=== PATIENT | male | born 1960 | race Caucasian/White ===

== ENCOUNTER 2024-02-20 10:43 | Outpatient (AMB) | payer OTHER, SELFPAY ==
--- NOTE | 2024-02-20 10:45 | MHC.PC.OV ---
Vital Signs 02/20/24 10:47 02/20/24 11:17 Height 6 ft Weight 340 lb 0.6 oz BMI 46.1 BP 162/74 H 160/76 H Blood Pressure Location Lt brachial Position Sitting Pulse 97 Pulse Source Pulse Oximeter Temp Source Skin Pulse Oximetry (%) 96 Oxygen Delivery Method Room Air Intake Visit Reasons: new patient Intake Note: Patient is a new patient here to establish care Allergies No Known Allergies Allergy (Verified 02/20/24 11:51) Medication List - Last Reconciled 02/20/24 by Daysi Rader PA-C [argenx PO DAILY] [black currant seed oil PO DAILY] multivitamin 1 tab PO DAILY [prostate pmg PO DAILY] Tobacco use date assessed: 02/20/24 Dental Screening Dental Screen Date: 02/20/24 Did you have a dental visit in the last 12 months?: Yes Did you have a dental problem in the last 6 months where you did not have access to dental care?: No Was dental information given to patient?: Patient has dentist HPI new patient HPI Details 63-year-old male with past medical history of obstructive sleep apnea presents to the office to establish care. 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 Has had a history of skin cancer with successful removal and follows with [facility]. Was recently tested positive for COVID-19 and subsequent pneumonia. Patient finished antibiotics for pneumonia last week and is still endorsing a mild cough primarily at night. Denies any fevers or shortness of breath. States he uses a CPAP nightly for obstructive sleep apnea and has been for the past 10 years. Mentions today he has been having urinary frequency and has to get up once throughout the night where in the past he did not have to. Denies any burning, urgency, incontinence, incomplete emptying or urinary hesitancy. He also mentions he has history of kidney stones so he stays very well hydrated. [facility] Medical History (Updated 02/20/24 @ 12:18 by Daysi Rader PA-C) Skin cancer Kidney stones Surgical History (Updated 02/20/24 @ 12:05 by Daysi Rader PA-C) Status post surgical removal of malignant neoplasm of skin History of tonsillectomy Family History Mother No problems noted. Social History Housing: House Patient Tobacco Use Status: Never used Tobacco service: No Current occupational status: employed Cognitive needs: No Hearing needs: No Vision needs: No Questionnaire PHQ-9 Over the last 2 weeks, how often have you been bothered by any of the following problems? 1. Little interest or pleasure in doing things: not at all 2. Feeling down, depressed, or hopeless: not at all 3. Trouble falling or staying asleep, or sleeping too much: not at all 4. Feeling tired or having little energy: not at all 5. Poor appetite or overeating: not at all 6. Feeling bad about yourself - or that you are a failure or have let yourself or your family down: not at all 7. Trouble concentrating on things, such as reading the newspaper or watching television: not at all 8. Moving or speaking so slowly that other people could have noticed. Or the opposite - being so fidgety or restless that you have been moving around a lot more than usual: not at all 9. Thoughts that you would be better off or of hurting yourself in some way: not at all Total score: 0 Depression Screening Interpretation: Negative Depression Screening Done: Yes 63159 - PHQ-9 Billing: Yes Source: Developed by Drs. Prieto Obrien, Emerita Meneses, Robb Pro and colleagues, with an educational jesus from [employer]. Thrive Questionnaire Date Thrive assessed: 02/20/24 I am a: Patient What is your living situation today?: I have a steady place to live Within the past 12 months, did the food you bought not last and you didn't have the money to get more?: Never true Within the past 12 months, did you worry whether your food would run out before you got money to buy more?: Never true Do you have trouble paying for medicines?: No Do you have trouble getting transportation to medical appointments?: No Do you have trouble paying your heating and electricity bill?: No Do you have trouble taking care of your child, family member or friend?: No Do you have trouble with day-to-day activities such as bathing, preparing meals, shopping, managing finances, etc.?: No Are you currently unemployed and looking for a job?: No Are you interested in more education?: No Please select the resources that you would like help with: None Currently or been in a relationship where the following occur: No concerns reported THRIVE Score: 0 AUDIT C Alcohol Use Questionnaire (AUDIT-C) 1. How often do you have a drink containing alcohol?: Never 2. How many drinks containing alcohol do you have on a typical day when you are drinking?: 1 or 2 (0) 3. How often do you have six or more drinks on one occasion?: Never Total Score: 0 BENOIT-7 AMB Questionnaire BENOIT-7 Date BENOIT - 7 assessed: 02/20/24 Feeling nervous, anxious, or on edge: 0 = Not at all Not being able to stop or control worryin = Not at all Worrying too much about different things: 0 = Not at all Trouble relaxin = Not at all Being so restless that it is hard to sit still: 0 = Not at all Becoming easily annoyed or irritable: 0 = Not at all Feeling afraid as if something awful might happen: 0 = Not at all Total BENOIT-7 score (0-4 normal; 5-9 mild; 10-14 moderate; 15-21 severe): 0 Source: Developed by Drs. Prieto Obrien, Emerita Meneses, Robb Pro and colleagues, with an educational jesus from [employer]. BENOIT-7 Assessment Billing BENOIT-7 Assessment Tool: BENOIT-7 Assessment 27341 Review of Systems Const Denies body aches, Denies chills, Denies fatigue, Denies fever(s) and Denies weakness Eyes Details: Uses contact lenses Reports no additional complaints ENT Reports Normal hearing present, Denies dysphagia, Denies facial pain, Denies hoarseness and Denies odynophagia Card Denies chest pain, Denies edema and Denies dyspnea Resp Details: Mild shortness of breath with prolonged exertion Denies cough and Denies dyspnea GI Denies abdominal pain, Denies constipation, Denies dysphagia, Denies diarrhea and Denies odynophagia Denies hematuria, Denies difficulty urinating, Denies dysuria, Denies flank pain, Reports urinary frequency, Denies urinary hesitancy and Denies urinary urgency Musc Reports no additional complaints Skin/Breast Reports system reviewed and no additional complaints, except as documented Neuro Reports no additional complaints, Reports Normal hearing present and Denies weakness Psych Reports no additional complaints Endo Reports no additional complaints and Denies fatigue Physical exam (Primary Care) Vital Signs: Last Vital Signs Pulse 97 02/20/24 10:47 BP 162/74 H 02/20/24 10:47 Pulse Ox 96 02/20/24 10:47 Oxygen Delivery Method Room Air 02/20/24 10:47 BMI result Body Mass Index 46.1 Tobacco/Smoking Status: Tobacco use Status Tobacco use date assessed 02/20/24 02/20/24 10:47 Patient Tobacco Use Status Never used Tobacco 02/20/24 10:55 PHQ-9: PHQ-9 Score PHQ-9: Total score 0 02/20/24 10:47 Depression Screening Interpretation: Negative Thrive Assessment: Date of Thrive Assessment Date Thrive assessed 02/20/24 02/20/24 10:47 Currently or been in a relationship where the following occur: No concerns reported Const General: cooperative, healthy appearing, comfortable and no acute distress Nutritional Appearance: obese Orientation/consciousness: patient oriented x3 Limitations: no limitations HENMT Head: Yes normal to inspection Ears: hearing grossly normal bilaterally, external ears normal and TM's normal bilaterally General nose exam: Normal external nose present Face and sinus: Yes normal facial exam Mouth: Normal oral and palatal mucosa present and oropharynx normal Throat: Yes posterior oropharynx normal and Yes tonsils normal Eyes General: appearance normal, both eyes and all related structures Pupils: Equal, round and reactive pupils present Neck Neck: Yes normal visual inspection Resp Effort & Inspection: normal respiratory effort and no cough Auscultation: clear to auscultation bilaterally, no crackles, no rales, no rhonchi and no wheezes Cardio Rate: regular rate Rhythm: regular rhythm Heart sounds: S1 normal heart sound present and S2 normal heart sound present GI Inspection: Yes normal to inspection Skin General skin exam: no rashes or lesions noted Neuro General: patient oriented x3 Cranial nerves: Yes Equal, round and reactive pupils present and Yes Normal hearing present Extrem General: Yes normal to inspection and Yes full ROM Psych Appearance: grossly normal Mental Status: mental status grossly normal Insight: Good insight present (Psych) Judgement: Good judgement present (Psych) Assessment and Plan Assessment & Plan (1) Obstructive sleep apnea: Code(s): G47.33 - Obstructive sleep apnea (adult) (pediatric) Plan: Patient completed sleep study around 10 years ago and has been using CPAP with good relief. He routinely buys the equipment himself to maintain the machine. (2) Elevated blood pressure reading in office without diagnosis of hypertension: Code(s): R03.0 - Elevated blood-pressure reading, without diagnosis of hypertension Plan: Patient's blood pressure was elevated in the office today. Mentions his blood pressure is usually elevated when he sees other providers. Will follow up in 3 months for annual physical and blood pressure check to evaluate if medical management is necessary. Also recommended patient purchase blood pressure cuff and monitor blood pressure 2-3 per week at home and record readings for next appointment. (3) Urinary frequency: Code(s): R35.0 - Frequency of micturition Plan: Patient endorses mild urinary frequency and mentions he has to go more often than previously. No dysuria, urinary hesitancy or incontinence. Will order PSA and CMP to evaluate for prostate or metabolic involvement and follow up at next visit. Orders: Orders Comprehensive Met. Panel Today Z00.00 - Encounter for general adult medical examination without abnormal findings Prostate Specific Antigen Scr Today R35.0 - Frequency of micturition Free T4 (Free Thyroxine) Today Z00.00 - Encounter for general adult medical examination without abnormal findings Lipid Panel Today Z00.00 - Encounter for general adult medical examination without abnormal findings Complete Blood Count Auto Diff Today Z00.00 - Encounter for general adult medical examination without abnormal findings TSH reflex Free T4 Today Z00.00 - Encounter for general adult medical examination without abnormal findings Coding Level of Care Code New Pt Level 4 (17614) Diagnoses Obstructive sleep apnea G47.33 Elevated blood pressure reading in office without diagnosis of hypertension R03.0 Urinary frequency R35.0 Additional Codes BENOIT-7 Assessment Billing - BENOIT-7 Assessment Tool: BENOIT-7 Assessment 06669 ([id number])
[2024-02-20 10:47] VITALS: BP 162/74; PULSE 97; O2SAT 96; BMI 46.1
[2024-02-20 11:17] VITALS: BP 160/76
== END 2024-02-20 11:35 | disposition home or self-care (01) ==
DX: G47.33 Obstructive sleep apnea (adult) (pediatric) (principal); R03.0 Elevated blood-pressure reading, without diagnosis of hypertension; R35.0 Frequency of micturition
CPT/HCPCS: 99204

== ENCOUNTER 2024-02-23 08:27 | Outpatient (REF) | payer OTHER, SELFPAY ==
[2024-02-23 08:54] LABS: MANUAL DIFF FLAG NO
[2024-02-23 09:30] LABS: Basophils Percent Auto 0.5 % (0-2); Eosinophils Absolute Auto 0.3 X10*3/uL (0.0-0.4); Eosinophils Percent Auto 3.6 % (0-4); Hematocrit 45.8 % (42.0-52.0); Hemoglobin 14.9 g/dl (14.0-18.0); Imm Gran Abs Auto 0.03 X10*3/uL (0.00-0.03); Imm Gran Pct Auto 0.4 % (0.0-0.4); Lymphocytes Absolute Auto 1.4 X10*3/uL (1.2-4.9); Mean Corpuscular HGB Conc 32.5 g/dl (31.0-36.0); Mean Corpuscular Hemoglobin 29.2 pg (27.0-33.0); Mean Corpuscular Volume 89.6 fL (80.0-98.0); Mean Platelet Volume 8.9 fL (9.4-12.4); Monocytes Absolute Auto 0.9 X10*3/uL (0.1-1.2); Monocytes Percent Auto 11.7 % (2-11); Neutrophils Absolute Auto 5.1 x10*3/uL (2.0-8.3); Neutrophils Percent Auto 65.8 % (45-73); Platelet Count 270 X10*3/uL (160-400); Red Blood Count 5.11 X10*6/uL (4.60-5.80); Red Cell Distribution Width 13.9 % (11.0-16.0); White Blood Count 7.8 X10*3/uL (4.8-10.8)
[2024-02-23 09:37] LABS: Alanine Aminotransferase 24 U/L (0-40); Albumin Level 4.3 g/dL (3.5-5.0); Alkaline Phosphatase 68 U/L (39-117); Anion Gap 13 (12-20); Aspartate Amino Transferase 21 U/L (5-37); Bilirubin Total 0.8 mg/dL (0.0-1.0); Blood Urea Nitrogen 18 mg/dL (9-16); Calcium 9.4 mg/dL (8.4-10.2); Carbon Dioxide 28 mmol/L (22-29); Chloride 106 mmol/L (96-108); Cholesterol 136 mg/dL (<200); Estimated Glomerular Filt Rate > 60; Glucose Random 107 mg/dL (60-115); HDL Cholesterol 41 mg/dL (>40); LDL Cholesterol Calculated 81 mg/dL (<100); Potassium 4.9 mmol/L (3.3-5.1); Sodium 142 mmol/L (135-145); Total Protein 7.1 g/dL (6.5-8.0); Triglycerides 73 mg/dL (<150)
[2024-02-23 10:00] LABS: Free T4 (Free Thyroxine) 0.93 ng/dL (0.71-1.85); TSH reflex Free T4 1.74 uIU/mL (0.32-4.0)
== END 2024-02-23 08:28 | disposition home or self-care (01) ==
LOC: HO.LAB 08:27
PROVIDERS: PCP Internal Medicine
DX: Z00.00 Encounter for general adult medical examination without abnormal findings (principal); R35.0 Frequency of micturition; Z12.5 Encounter for screening for malignant neoplasm of prostate
CPT/HCPCS: 36415; 80053; 80061; 84153; 84439; 84443; 85025

== ENCOUNTER 2024-05-22 10:01 | Outpatient (AMB) | payer OTHER, SELFPAY ==
[2024-05-22 10:04] VITALS: BP 160/64; PULSE 86; O2SAT 94; BMI 45.3
--- NOTE | 2024-05-22 10:04 | A.OFFPC_ITS ---
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 Allergies No Known Allergies Allergy (Verified 05/22/24 10:13) Medication List - Last Reconciled 05/22/24 by Daysi Rader PA-C albuterol sulfate 90 mcg/actuation inhalation [argenx PO DAILY] [black currant seed oil PO DAILY] multivitamin 1 tab PO DAILY [prostate pmg PO DAILY] Tobacco use date assessed: 02/20/24 Dental Screening Dental Screen Date: 02/20/24 Did you have a dental visit in the last 12 months?: Yes Did you have a dental problem in the last 6 months where you did not have access to dental care?: No Was dental information given to patient?: Patient has dentist HPI Annual Exam and HTN HPI Details 63-year-old male with past medical histo ry of obstructive sleep apnea last seen February 2024 coming in for annual exam. Patient is feeling generally well and has no acute concerns today. He does mentioned he has had chronic bilateral leg swelling for several years with discoloration of left leg without any pain. He also mentions he has obstructive sleep apnea and has a very old CPAP machine that he uses regularly but would like an updated machine. He regularly sees his eye doctor scheduled to be seen in this week. At his last visit use advised to take his blood pressure throughout the week which he has not done. [facility] Medical History Skin cancer Kidney stones Surgical History Status post surgical removal of malignant neoplasm of skin History of tonsillectomy Family History Mother No problems noted. Social History Housing: House Patient Tobacco Use Status: Never used Tobacco service: No Current occupational status: employed Cognitive needs: No Hearing needs: No Vision needs: No Questionnaire PHQ-9 Over the last 2 weeks, how often have you been bothered by any of the following problems? 1. Little interest or pleasure in doing things: not at all 2. Feeling down, depressed, or hopeless: not at all 3. Trouble falling or staying asleep, or sleeping too much: several days 4. Feeling tired or having little energy: several days 5. Poor appetite or overeating: not at all 6. Feeling bad about yourself - or that you are a failure or have let yourself or your family down: not at all 7. Trouble concentrating on things, such as reading the newspaper or watching television: not at all 8. Moving or speaking so slowly that other people could have noticed. Or the opposite - being so fidgety or restless that you have been moving around a lot more than usual: not at all 9. Thoughts that you would be better off or of hurting yourself in some way: not at all Total score: 2 Depression Screening Interpretation: Negative Depression Screening Done: Yes 58099 - PHQ-9 Billing: Yes Source: Developed by Drs. Prieto Obrien, Emerita Meneses, Robb Pro and colleagues, with an educational jesus from [employer]. Thrive Questionnaire Date Thrive assessed: 02/20/24 I am a: Patient What is your living situation today?: I have a steady place to live Within the past 12 months, did the food you bought not last and you didn't have the money to get more?: Never true Within the past 12 months, did you worry whether your food would run out before you got money to buy more?: Never true Do you have trouble paying for medicines?: No Do you have trouble getting transportation to medical appointments?: No Do you have trouble paying your heating and electricity bill?: No Do you have trouble taking care of your child, family member or friend?: No Do you have trouble with day-to-day activities such as bathing, preparing meals, shopping, managing finances, etc.?: No Are you currently unemployed and looking for a job?: No Are you interested in more education?: Yes Please select the resources that you would like help with: None Currently or been in a relationship where the following occur: No concerns reported THRIVE Score: 0 AUDIT C Alcohol Use Questionnaire (AUDIT-C) 1. How often do you have a drink containing alcohol?: Never Total Score: 0 BENOIT-7 AMB Questionnaire BENOIT-7 Date BENOIT - 7 assessed: 05/22/24 Feeling nervous, anxious, or on edge: 0 = Not at all Not being able to stop or control worryin = Not at all Worrying too much about different things: 0 = Not at all Trouble relaxin = Not at all Being so restless that it is hard to sit still: 0 = Not at all Becoming easily annoyed or irritable: 0 = Not at all Feeling afraid as if something awful might happen: 0 = Not at all Total BENOIT-7 score (0-4 normal; 5-9 mild; 10-14 moderate; 15-21 severe): 0 Source: Developed by Drs. Prieto Obrien, Emerita Meneses, Robb Pro and colleagues, with an educational jesus from [employer]. BENOIT-7 Assessment Billing BENOIT-7 Assessment Tool: BENOIT-7 Assessment 65098 Review of Systems Const Denies body aches, Denies fatigue, Denies fever(s), Denies frequent falls, Denies headache(s) and Denies weakness Eyes Reports no additional complaints and Denies change in vision ENT Denies dysphagia, Denies dizziness, Denies facial pain, Denies headache(s), Denies nasal congestion and Denies odynophagia Card Denies chest pain, Denies syncope, Denies irregular heart rhythm, Reports leg edema, Denies lightheadedness and Denies dyspnea Resp Denies cough and Denies dyspnea GI Denies constipation, Denies dysphagia, Denies dyspepsia, Denies diarrhea, Denies nausea, Denies odynophagia and Denies vomiting Denies dysuria, Denies urinary frequency, Denies urinary hesitancy and Denies urinary urgency Musc Denies back pain and Denies myalgias Skin/Breast Reports system reviewed and no additional complaints, except as documented Neuro Denies dizziness, Denies syncope, Denies frequent falls, Denies headache(s) and Denies weakness Psych Reports no additional complaints Endo Denies fatigue Physical exam (Primary Care) Vital Signs: Last Vital Signs Pulse 86 05/22/24 10:04 BP 160/64 H 05/22/24 10:04 Pulse Ox 94 05/22/24 10:04 Oxygen Delivery Method Room Air 05/22/24 10:04 BMI result Body Mass Index 45.3 Tobacco/Smoking Status: Tobacco use Status Tobacco use date assessed 02/20/24 05/22/24 10:10 Patient Tobacco Use Status Never used Tobacco 05/22/24 10:10 PHQ-9: PHQ-9 Score PHQ-9: Total score 2 05/22/24 10:10 Depression Screening Interpretation: Negative Thrive Assessment: Date of Thrive Assessment Date Thrive assessed 02/20/24 05/22/24 10:10 Currently or been in a relationship where the following occur: No concerns reported Const General: cooperative, healthy appearing, comfortable and no acute distress Orientation/consciousness: patient oriented x3 HENMT Head: Yes normocephalic Ears: hearing grossly normal bilaterally, external ears normal, TM's normal bilaterally and EAC's normal General nose exam: Normal external nose present Face and sinus: Yes normal facial exam and Yes sinuses nontender Mouth: Normal oral and palatal mucosa present and tongue normal Throat: Yes posterior oropharynx normal Eyes General: appearance normal, both eyes and all related structures Conjunctivae: conjunctivae normal Pupils: Equal, round and reactive pupils present EOM: EOMs intact bilaterally and No Nystagmus present Neck Neck: Yes normal visual inspection, Yes full ROM and Yes no lymphadenopathy Chest Chest palpation & inspection: normal inspection of the chest Resp Effort & Inspection: normal respiratory effort Auscultation: clear to auscultation bilaterally, no crackles, no rales, no rhonchi, no wheezes and breath sounds present Cardio Rate: regular rate Rhythm: regular rhythm Peripheral pulses: radial pulses present and dorsalis pedis present GI Inspection: Yes normal to inspection and No Abdominal wall edema Palpation (GI): Soft to palpation, not firm and nontender Auscultation: normal bowel sounds Rectal Exam - Male: Yes deferred General: Yes no CVA tenderness Back/Spine/Pelvis Back: no CVA tenderness Skin General skin exam: no rashes or lesions noted Neuro General: patient oriented x3 Cranial nerves: Yes Equal, round and reactive pupils present, Yes Midline tongue present, Yes Ability to bilaterally elevate shoulders present and No Nystagmus present Gait exam (Neuro): Normal gait present Extrem Other: Bilateral 1+ pitting edema of lower extremities with intact sensation and pulses General: Yes normal to inspection and Yes full ROM Psych Speech and movement: Normal speech and movement present Affect: normal affect Insight: Good insight present (Psych) Judgement: Good judgement present (Psych) Coding Level of Care Code Est Pt Prev Care 40-64y(24270) Diagnoses Elevated blood pressure reading in office without diagnosis of hypertension R03.0 Obstructive sleep apnea G47.33 Annual physical exam Z00.00 Localized swelling of both lower legs R22.43 Additional Codes BENOIT-7 Assessment Billing - BENOIT-7 Assessment Tool: BENOIT-7 Assessment 32089 ([id number]) Assessment & Plan Assessment & Plan (1) Elevated blood pressure reading in office without diagnosis of hypertension: Code(s): R03.0 - Elevated blood-pressure reading, without diagnosis of hypertension Category: Medical Plan: Blood pressure elevated and once again in the office advised patient to get take home blood pressure cuff and take blood pressure 3-4 times per week and come to next appointment with log. We will start on lisinopril 5 mg. Avoid salt intake and encourage healthy diet and regular exercise. (2) Obstructive sleep apnea: Code(s): G47.33 - Obstructive sleep apnea (adult) (pediatric) Category: Medical Plan: Patient has history of obstructive sleep apnea and uses CPAP nightly for at least 4 hours and benefits from this. His CPAP machine is very old and he would like an updated machine as he does have issues with his. Prescription given to patient today. (3) Annual physical exam: Code(s): Z00.00 - Encounter for general adult medical examination without abnormal findings Category: Medical Plan: Patient is up-to-date on all recommended routine screenings and vaccinations for his age. Blood work is up-to-date as well. Follow up in 1 year. (4) Localized swelling of both lower legs: Code(s): R22.43 - Localized swelling, mass and lump, lower limb, bilateral Category: Medical Plan: Patient has chronic 1+ pitting edema bilateral lower extremities with discoloration of left lower extremity without pain. He states the skin changes have been present for several months and unchanging. Advised patient to keep bilateral legs well hydrated to avoid cracking and infection. Also advised patient to elevate legs regularly and use compression stockings and increase exercise. Plan This note was constructed using voice recognition software. While every effort has been made to ensure accuracy and retail clerk, still areas may have been included sometimes these areas may affect the content or meeting of the given symptoms. Total time spent caring for the patient today was 30 minutes. This includes time spent before the visit reviewing the chart, time spent during the visit, and time spent after the visit and documentation. Medications: New lisinopril 5 mg PO DAILY 30 tabs 1RF [compression stockings] As directed. 20-30 mmHg 3 ea 0RF leg edema R22.43 - Localized swelling, mass and lump, lower limb, bilateral albuterol sulfate 90 mcg/actuation 1 puff inhalation Q6-8H 6.7 grams 1RF CPAP (CPAP Machine/Device) As directed 1 ea 0RF
== END 2024-05-22 10:34 | disposition home or self-care (01) ==
PROVIDERS: PCP Internal Medicine
DX: R03.0 Elevated blood-pressure reading, without diagnosis of hypertension (principal); G47.33 Obstructive sleep apnea (adult) (pediatric); Z00.00 Encounter for general adult medical examination without abnormal findings; R22.43 Localized swelling, mass and lump, lower limb, bilateral

== ENCOUNTER → 2024-05-22 10:01 | Outpatient (BNVA) | payer OTHER, SELFPAY | PROVIDERS: PCP Internal Medicine | DX: Z00.00 Encounter for general adult medical examination without abnormal findings (principal); R03.0 Elevated blood-pressure reading, without diagnosis of hypertension; G47.33 Obstructive sleep apnea (adult) (pediatric); R22.43 Localized swelling, mass and lump, lower limb, bilateral | CPT/HCPCS: 96127 ==